=== PATIENT | female | born 1980 | race Hispanic/Latino ===

== ENCOUNTER 2018-06-03 14:38 | Inpatient (IN) | payer OTHER ==
[~2018-06-03] VITALS: Ht 170.2 cm; Wt 108.4 kg
[2018-06-03] MEDS ORDERED: MORPHINE SULFATE INJ 4 MG/ML INJ IV STA (15:26)
[2018-06-03] MEDS ORDERED: SODIUM CHLORIDE 0.9% 1000ML 1,000 ML IV STA (15:26)
[2018-06-03] MEDS ORDERED: ONDANSETRON HCL INJ 2 MG/ML VIAL IV STA (15:26)
[2018-06-03 16:20] LABS: BASOPHILS % 0.2 % (0.0-1.0); HEMATOCRIT 40.9 % (34.2-44.1); LYMPHOCYTES # (AUTO) 0.7 (1.0-3.2); LYMPHOCYTES % 3.1 % (18.0-39.1); MEAN CORPUSCULAR HEMOGLOBIN 33.4 pg (28-32); MEAN CORPUSCULAR HGB CONC 34.2 g/dL (31-35); MEAN CORPUSCULAR VOLUME 97.6 fL (81-99); MONOCYTES # (AUTO) 0.6 (0.2-0.8); MONOCYTES % 2.6 % (4.4-11.3); NEUTROPHILS # (AUTO) 19.6 (2.1-6.9); NEUTROPHILS % 93.2 % (38.7-80.0); PLATELET COUNT 254 x10e3/uL (140-360); RED BLOOD COUNT 4.19 x10e6/uL (3.6-5.1)
[2018-06-03] MEDS ORDERED: IBUPROFEN 600 MG TAB PO STA (16:47)
[2018-06-03 17:07] LABS: ALANINE AMINOTRANSFERASE 18 IU/L (0-55); ALBUMIN 3.8 g/dL (3.5-5.0); ALBUMIN/GLOBULIN RATIO 1.1 (0.8-2.0); ALKALINE PHOSPHATASE 86 IU/L (40-150); ANION GAP 15.6 mmol/L (8-16); BLOOD UREA NITROGEN 9 mg/dL (7-26); BUN/CREATININE RATIO 12 (6-25); CALCIUM 9.6 mg/dL (8.4-10.2); CARBON DIOXIDE 21 mmol/L (22-29); CHLORIDE 100 mmol/L (98-107); CREATININE, SERUM 0.75 mg/dL (0.57-1.11); EST GLOMERULAR FILTRATION RATE > 60 ML/MIN (60-); GLUCOSE 116 mg/dL (74-118); POTASSIUM 3.6 mmol/L (3.5-5.1); SODIUM 133 mmol/L (136-145)
[2018-06-03 17:09] LABS: CLARITY,URINE SL CLOUDY (CLEAR); COLOR,URINE YELLOW (YELLOW); KETONES,URINE 1+ (NEGATIVE); LEUKOCYTE ESTERASE ,URINE NEGATIVE (NEGATIVE); NITRITE,URINE NEGATIVE (NEGATIVE); PROTEIN,URINE DIPSTICK 1+ (NEGATIVE)
[2018-06-03 17:10] LABS: BILIRUBIN,URINE NEGATIVE (NEGATIVE); URINE UROBILINOGEN 0.2 mg/dL (0.2 - 1)
[2018-06-03 17:29] LABS: AMORPHOUS SEDIMENT,URINE MANY (FEW); BACTERIA,URINE RARE /HPF; EPITHELIAL CELLS,URINE RARE /LPF; RBC,URINE 0-5 /HPF (0-5)
[2018-06-03] MEDS: PIPER-TAZ 3.375 GM 50 ML IV SCH ×2 (18:20→23:55)
[2018-06-03] MEDS: MORPHINE SULFATE INJ 4 MG/ML INJ IV PRN (18:32)
[2018-06-03] MEDS ORDERED: VANCOMYCIN 1GM/NS 250 ML 250 ML IV SCH (19:00)
[2018-06-03] MEDS ORDERED: SYNTHROID100 MCG PO (19:39)
[2018-06-03] MEDS ORDERED: LISINOPRIL10 MG PO (19:39)
[2018-06-03] MEDS ORDERED: PRISTIQ ER50 MG PO (19:39)
[2018-06-03 20:00] VITALS: BP 115/63
[2018-06-03 20:20] VITALS: BP 115/63
[2018-06-03] MEDS: SODIUM CHLORIDE 0.9% 1000ML 1,000 ML IV SCH (22:33)
[2018-06-04] VITALS (7 sets, daily range): BP systolic 107–127; BP diastolic 59–73
[2018-06-04] MEDS: ONDANSETRON HCL INJ 2 MG/ML VIAL IV PRN ×2 (00:12→07:50)
[2018-06-04] MEDS: MORPHINE SULFATE INJ 4 MG/ML INJ IV PRN ×2 (00:12→07:50)
[2018-06-04] MEDS: PIPER-TAZ 3.375 GM 50 ML IV SCH (05:32)
[2018-06-04 06:48] LABS: BASOPHILS % 0.3 % (0.0-1.0); EOSINOPHILS % 0.2 % (0.0-6.0); HEMATOCRIT 35.9 % (34.2-44.1); HEMOGLOBIN 11.9 g/dL (12.0-16.0); LYMPHOCYTES # (AUTO) 0.9 (1.0-3.2); LYMPHOCYTES % 7.9 % (18.0-39.1); MEAN CORPUSCULAR HGB CONC 33.1 g/dL (31-35); MEAN CORPUSCULAR VOLUME 99.4 fL (81-99); MONOCYTES # (AUTO) 0.6 (0.2-0.8); MONOCYTES % 5.1 % (4.4-11.3); NEUTROPHILS # (AUTO) 9.5 (2.1-6.9); NEUTROPHILS % 85.8 % (38.7-80.0); PLATELET COUNT 218 x10e3/uL (140-360); RED BLOOD COUNT 3.61 x10e6/uL (3.6-5.1); RED CELL DISTRIBUTION WIDTH 13.9 % (11.7-14.4)
[2018-06-04] MEDS: SODIUM CHLORIDE 0.9% 1000ML 1,000 ML IV SCH ×3 (09:35→20:56)
[2018-06-04 10:21] LABS: BAND NEUTROPHILS % (MANUAL) 9 %; LYMPHOCYTES % (MANUAL) 5 % (19-48); MONOCYTES % (MANUAL) 5 % (3.4-9.0); NEUTROPHILS % (MANUAL) 81 % (40-74); PLATELET ESTIMATE ADEQUATE; PLATELET MORPHOLOGY COMMENT NORMAL; RBC MORPHOLOGY COMMENT NORMAL
[2018-06-04] MEDS: VANCOMYCIN 1GM/NS 250 ML 250 ML IV SCH ×2 (11:57→23:17)
[2018-06-04] MEDS: ACETAMINOPHEN/CODEINE 300MG - 30MG TAB PO PRN ×2 (12:15→18:22)
[2018-06-04] MEDS: ACETAMINOPHEN 325 MG TAB PO PRN (20:56)
[2018-06-05] VITALS (8 sets, daily range): BP systolic 118–157; BP diastolic 62–88
[2018-06-05] MEDS: MORPHINE SULFATE INJ 4 MG/ML INJ IV PRN ×4 (03:09→21:35)
[2018-06-05] MEDS: ONDANSETRON HCL INJ 2 MG/ML VIAL IV PRN ×2 (03:09→12:33)
[2018-06-05 05:16] LABS: BASOPHILS % 0.2 % (0.0-1.0); EOSINOPHILS # (AUTO) 0.3 (0.0-0.4); EOSINOPHILS % 2.9 % (0.0-6.0); HEMATOCRIT 33.4 % (34.2-44.1); LYMPHOCYTES # (AUTO) 0.9 (1.0-3.2); LYMPHOCYTES % 7.5 % (18.0-39.1); MEAN CORPUSCULAR HEMOGLOBIN 33.2 pg (28-32); MEAN CORPUSCULAR HGB CONC 32.9 g/dL (31-35); MEAN CORPUSCULAR VOLUME 100.9 fL (81-99); MONOCYTES # (AUTO) 0.5 (0.2-0.8); MONOCYTES % 4.6 % (4.4-11.3); NEUTROPHILS # (AUTO) 9.6 (2.1-6.9); NEUTROPHILS % 84.1 % (38.7-80.0); PLATELET COUNT 176 x10e3/uL (140-360); RED BLOOD COUNT 3.31 x10e6/uL (3.6-5.1); RED CELL DISTRIBUTION WIDTH 13.9 % (11.7-14.4)
[2018-06-05 05:42] LABS: ANION GAP 11.6 mmol/L (8-16); BLOOD UREA NITROGEN < 5 mg/dL (7-26); CALCIUM 8.5 mg/dL (8.4-10.2); CARBON DIOXIDE 21 mmol/L (22-29); CHLORIDE 106 mmol/L (98-107); CREATININE, SERUM 0.59 mg/dL (0.57-1.11); EST GLOMERULAR FILTRATION RATE > 60 ML/MIN (60-); GLUCOSE 128 mg/dL (74-118); MAGNESIUM 1.7 MG/DL (1.3-2.1); POTASSIUM 3.6 mmol/L (3.5-5.1); SODIUM 135 mmol/L (136-145)
[2018-06-05 05:45] LABS: BUN/CREATININE RATIO 8 (6-25)
[2018-06-05] MEDS: LEVOTHYROXINE SODIUM 100 MCG TAB PO SCH (06:02)
[2018-06-05] MEDS: SODIUM CHLORIDE 0.9% 1000ML 1,000 ML IV SCH ×3 (06:02→21:11)
[2018-06-05] MEDS: DESVENLAFAXINE SUCCINATE 50 MG TAB.SR.24H PO SCH (09:11)
[2018-06-05 09:25] LABS: BAND NEUTROPHILS % (MANUAL) 2 %; EOSINOPHILS % (MANUAL) 5 % (0-7); LYMPHOCYTES % (MANUAL) 7 % (19-48); MONOCYTES % (MANUAL) 2 % (3.4-9.0); NEUTROPHILS % (MANUAL) 84 % (40-74)
[2018-06-05 09:26] LABS: PLATELET ESTIMATE ADEQUATE; PLATELET MORPHOLOGY COMMENT FEW LARGE; RBC MORPHOLOGY COMMENT NORMAL
[2018-06-05] MEDS: VANCOMYCIN 1GM/NS 250 ML 250 ML IV SCH ×2 (11:13→23:56)
[2018-06-05] MEDS ORDERED: CEFTRIAXONE SOD 1 GM VIAL INJ ONE (14:45)
[2018-06-05] MEDS: ACETAMINOPHEN/CODEINE 300MG - 30MG TAB PO PRN (15:21)
[2018-06-05] MEDS: CLINDAMYCIN 600MG/D5W 50ML 50 ML IV SCH ×2 (15:50→21:11)
[2018-06-06] VITALS (9 sets, daily range): BP systolic 120–159; BP diastolic 58–90
[2018-06-06] MEDS ORDERED: IOPAMIDOL 370 MG/ML 200 ML INFUS..BTL INJ ONE (01:14)
[2018-06-06] MEDS ORDERED: SODIUM CHLORIDE 0.9% 50ML 50 ML ONE (01:14)
--- NOTE | 2018-06-06 01:37 | Diagnostic Imaging Report ---
EXAM: CT FEMUR RIGHT W, CT TIBIA/FIBULA RIGHT W DATE: 06/05/2018 6:18 PM INDICATION: Cellulitis, right lower limb, concern for abscess COMPARISON: None TECHNIQUE: The right leg (femur, tibial, fibula) was scanned using a multidetector helical scanner. Coronal and sagittal reformations were obtained. IV Contrast: 100 ml Isovue 300/370 FINDINGS: VISUALIZED PELVIC ORGANS: Somewhat degraded by noise. There is trace pelvic free fluid. Nonspecific prominent left gonadal/pelvic vessels. Several underlying/mildly enlarged right external iliac, inguinal and proximal thigh with nodes are likely reactive (for example 1.3 cm in short axis on image 63). SOFT TISSUES: There is focal skin thickening and underlying subcutaneous stranding/inflammatory changes of the medial right proximal thigh/inguinal region, right anterior lower leg (anterior to the tibia) and right anterolateral ankle. No drainable fluid collection. Scattered soft tissue calcifications. BONES: No suspicious bone lesions. Specifically, no acute fractures or osseous destruction. Mild right hip degenerative changes. IMPRESSION: Cellulitis without evidence of abscess. Signed by: Dr Chiara Ventura MD on 06/06/2018 1:34 AM
[2018-06-06] MEDS: ACETAMINOPHEN 325 MG TAB PO PRN (02:49)
[2018-06-06] MEDS: MORPHINE SULFATE INJ 4 MG/ML INJ IV PRN ×3 (02:49→20:34)
[2018-06-06] MEDS: LEVOTHYROXINE SODIUM 100 MCG TAB PO SCH (05:07)
[2018-06-06] MEDS: CLINDAMYCIN 600MG/D5W 50ML 50 ML IV SCH (05:07)
[2018-06-06 05:36] LABS: BASOPHILS % 0.3 % (0.0-1.0); EOSINOPHILS # (AUTO) 0.5 (0.0-0.4); EOSINOPHILS % 5.1 % (0.0-6.0); HEMATOCRIT 32.2 % (34.2-44.1); HEMOGLOBIN 10.8 g/dL (12.0-16.0); LYMPHOCYTES # (AUTO) 1.2 (1.0-3.2); LYMPHOCYTES % 12.9 % (18.0-39.1); MEAN CORPUSCULAR HEMOGLOBIN 33.4 pg (28-32); MEAN CORPUSCULAR HGB CONC 33.5 g/dL (31-35); MEAN CORPUSCULAR VOLUME 99.7 fL (81-99); MONOCYTES # (AUTO) 0.7 (0.2-0.8); MONOCYTES % 7.3 % (4.4-11.3); NEUTROPHILS # (AUTO) 6.6 (2.1-6.9); NEUTROPHILS % 74.1 % (38.7-80.0); PLATELET COUNT 189 x10e3/uL (140-360); RED BLOOD COUNT 3.23 x10e6/uL (3.6-5.1); RED CELL DISTRIBUTION WIDTH 13.7 % (11.7-14.4)
[2018-06-06 06:06] LABS: ANION GAP 10.4 mmol/L (8-16); BLOOD UREA NITROGEN < 5 mg/dL (7-26); CALCIUM 8.5 mg/dL (8.4-10.2); CARBON DIOXIDE 24 mmol/L (22-29); CHLORIDE 107 mmol/L (98-107); CREATININE, SERUM 0.54 mg/dL (0.57-1.11); EST GLOMERULAR FILTRATION RATE > 60 ML/MIN (60-); GLUCOSE 104 mg/dL (74-118); MAGNESIUM 1.7 MG/DL (1.3-2.1); POTASSIUM 3.4 mmol/L (3.5-5.1); SODIUM 138 mmol/L (136-145)
[2018-06-06 06:13] LABS: BUN/CREATININE RATIO 9 (6-25)
[2018-06-06 07:20] LABS: BAND NEUTROPHILS % (MANUAL) 1 %; EOSINOPHILS % (MANUAL) 6 % (0-7); LYMPHOCYTES % (MANUAL) 12 % (19-48); MONOCYTES % (MANUAL) 2 % (3.4-9.0); NEUTROPHILS % (MANUAL) 79 % (40-74)
[2018-06-06 07:22] LABS: PLATELET ESTIMATE ADEQUATE; PLATELET MORPHOLOGY COMMENT NORMAL; RBC MORPHOLOGY COMMENT NORMAL
[2018-06-06 07:23] LABS: ANISOCYTOSIS SLIGHT; HYPOCHROMASIA SLIGHT
[2018-06-06] MEDS: DESVENLAFAXINE SUCCINATE 50 MG TAB.SR.24H PO SCH (08:49)
[2018-06-06] MEDS: SODIUM CHLORIDE 0.9% 1000ML 1,000 ML IV SCH (11:18)
[2018-06-06] MEDS ORDERED: VANCOMYCIN HCL 1.25 GM in SODIUM CHLORIDE 0.9% 250ML 300 ML IV SCH (11:30)
[2018-06-06] MEDS: ONDANSETRON HCL INJ 2 MG/ML VIAL IV PRN (11:39)
[2018-06-06] MEDS ORDERED: LACTULOSE SYRUP 20 GM/30 ML UDC PO NR (12:00)
[2018-06-06] MEDS ORDERED: POTASSIUM CHLORIDE 20 MEQ TAB CR PO NR (12:00)
[2018-06-06] MEDS: TRIMETHOPRIM/SULFAMETHOXAZOLE 160-800 MG TAB PO SCH ×2 (12:27→21:08)
[2018-06-06] MEDS: LISINOPRIL 10 MG TAB PO SCH (12:27)
[2018-06-06] MEDS: VANCOMYCIN HCL 1.25 GM in SODIUM CHLORIDE 0.9% 250ML 300 ML IV SCH ×2 (12:27→23:31)
[2018-06-07] MEDS: ACETAMINOPHEN/CODEINE 300MG - 30MG TAB PO PRN ×3 (01:41→11:41)
[2018-06-07 04:25] VITALS: BP 111/56
[2018-06-07] MEDS: LEVOTHYROXINE SODIUM 100 MCG TAB PO SCH (07:19)
[2018-06-07 08:00] VITALS: BP 127/60
[2018-06-07 08:23] VITALS: BP 127/60
[2018-06-07] MEDS: TRIMETHOPRIM/SULFAMETHOXAZOLE 160-800 MG TAB PO SCH (09:00)
[2018-06-07] MEDS: LISINOPRIL 10 MG TAB PO SCH (09:00)
[2018-06-07] MEDS: DESVENLAFAXINE SUCCINATE 50 MG TAB.SR.24H PO SCH (09:00)
[2018-06-07] MEDS ORDERED: TYLENOL WITH C1 EACH PO (11:23)
[2018-06-07] MEDS ORDERED: BACTRIM DS TAB1 EACH PO (11:23)
[2018-06-07 11:52] VITALS: BP 134/75
[2018-06-07] MEDS ORDERED: VANCOMYCIN HCL 1.25 GM in SODIUM CHLORIDE 0.9% 250ML 250 ML IV SCH (12:00)
--- NOTE | 2018-06-07 12:50 | Discharge Summary ---
PRIMARY CARE DOCTOR: Dr. Magdiel Chiang with [facility]. FINAL DIAGNOSIS: Severe right lower leg cellulitis with lymphangial spread up to her right groin with sepsis present on admission. SECONDARY DIAGNOSES 1. Hyponatremia, resolved. 2. Mild metabolic acidosis, resolved. CONSULTANTS: None. PROCEDURES/STUDIES PERFORMED: CT of the right leg did not show any abscess. HISTORY: Per H\T\P. HOSPITAL COURSE: Patient was admitted. She was febrile. White count was 21 with 9% bands. Patient also has lymphangial spread to the right groin. Initially she was on IV vancomycin. However, her redness seems to progress a little bit. Therefore, IV clindamycin was started. One dose of IV Rocephin was given as well. CT was done, which was negative for abscess. Therefore, IV clindamycin was discontinued. Patient now is afebrile. Her leukocytosis is better, and she is stable to go home. I will let her go home on Bactrim times another week to complete a 10-day course. Patient will follow with her primary care doctor in a week. Patient was seen and examined today. It took 32 minutes total to discharge this patient. CONDITION ON DISCHARGE: Improved. DISCHARGE MEDICATIONS: Please see medication reconciliation form. DEVEN DIAZ M.D. Job#: [id number] EV cc:MAGDIEL CHIANG DO
== END 2018-06-07 13:13 | disposition home or self-care (01) | DRG 872 ==
LOC: ER 14:38 → ERHOLD 16:50 → MED/SURG3 19:53
PROVIDERS: ADMIT Internal Medicine; ATTEND Internal Medicine
DX: A41.9 Sepsis, unspecified organism (principal); L03.115 Cellulitis of right lower limb; E87.1 Hypo-osmolality and hyponatremia; E87.2 Acidosis; L03.314 Cellulitis of groin; E86.0 Dehydration; I89.1 Lymphangitis
CPT/HCPCS: 36415; 80048; 80053; 80202; 81001; 83735; 84702; 85025; 87040; 87086; 99284; J0696; J2270; J2405; J2543; J3370; J7030; J7050; Q9967